=== PATIENT | female | born 1955 | race Caucasian/White ===

== ENCOUNTER 2019-09-12 11:15 | Outpatient (CLI) | payer MEDICARE, SELFPAY ==
--- NOTE | ~2019-09-12 | MMUS_ITS ---
EXAMINATION: MM diagnostic mammo unilat LT, US breast LT limited HISTORY: Focal asymmetry of the left breast on screening mammogram TECHNIQUE: Additional 3-D tomosynthesis images of the left breast were performed and synthetic 2-D im ages were generated. CAD analysis was submitted and interpreted. High resolution limited left breast ultrasound was performed. COMPARISON: 08/05/2019 FINDINGS: MAMMOGRAPHIC FINDINGS: There is a persistent asymmetry at the 12:00 location in the middle third of the breast approximately 6 cm from the nipple. There appears to be subtle surrounding architectural distortion. ULTRASOUND: There is a 6 mm x 4 mm irregular, not parallel, hypoechoic mass with indistinct margins, posterior sh adowing and peripheral vascularity at the 1:00 location 3 cm from the nipple. IMPRESSION: 1. Suspicious left breast mass. 2. Ultrasound-guided biopsy is recommended. BI-RADS category 4, suspicious findings. Reviewed, dictated and finalized at location [facility]. NICAL SYSTEMS ARCHITECT IMPRESSION: 1. Suspicious left breast mass. 2. Ultrasound-guided biopsy is recommended. BI-RADS category 4, suspicious findings.
== END 2019-09-12 11:16 | disposition home or self-care (01) ==
LOC: ANHIMG 11:21
PROVIDERS: PCP Family Medicine; Visit Provider Nurse Practitioner Family
DX: R92.8 Other abnormal and inconclusive findings on diagnostic imaging of breast (principal)
CPT/HCPCS: 76642; 77065

== ENCOUNTER 2019-09-26 10:12 | Outpatient (CLI) | payer MEDICARE, SELFPAY ==
--- NOTE | ~2019-09-26 | US_ITS ---
US breast biopsy LT w image DATE: 09/26/2019 12:14 INDICATION: The patient presented for biopsy of a reported 6 x 4 mm irregular and typed parallel hypo echoic mass with indistinct margins at 1:00 3 cm from the nipple based upon left breast ul trasound examination. TECHNIQUE: High-resolution ultrasound imaging was performed at 1:00 3 cm from the nipple. The technol ogist initially perform the scan did not believe that there was a reproducible mass at the 1:00 locat ion 3 cm from the nipple previously reported on 09/12/2019. I then scanned the patient myself and was unable to reproduce any discrete mass. I discussed the findings with the patient and recommended that she return in 6 months for repeat diag nostic left mammogram and targeted left breast ultrasound examination. COMPARISON: 09/12/2019 diagnostic left digital mammogram and limited left breast ultrasound examinatio n 08/05/2019 bilateral digital screening mammogram IMPRESSION: BI-RADS Category 3: Probably benign Recommendation: 6 month diagnostic left mammogram and left breast ultrasound follow-up examination Reviewed, dictated and finalized at [facility]. Reviewed, dictated and finalized at location [facility]. [employer] IMPRESSION: BI-RADS Category 3: Probably benign Recommendation: 6 month diagnostic left mammogram and left breast ultrasound fo llow-up examination
== END 2019-09-26 10:13 | disposition home or self-care (01) ==
PROVIDERS: PCP Family Medicine; Visit Provider Nurse Practitioner Family
DX: R92.8 Other abnormal and inconclusive findings on diagnostic imaging of breast (principal)
CPT/HCPCS: 19083